=== PATIENT | male | born 1930 | race Caucasian/White ===

== ENCOUNTER → 2016-11-20 | Outpatient (CLI) | payer MEDICARE, BC ==
[~2016-11-20] MED LIST: ALPRAZOLAM; AMIODARONE PO; AMITRYPTYLINE PO; APRESOLINE10 M1 PO; ARICEPT5 MG PO; ASPIRIN PO; ASPIRIN81 M1 PO; ATIVAN PO; B-122500 MCG PO; CARTIA XT PO; CENTRUM SILVER PO; COUMADIN PO; DARVON65 MG; DONEPEZIL HCL10 M1 PO; DONEPEZIL HCL10 MG PO; FINASTERIDE5 M1 PO; FLOMAX0.4 M1 PO; FLOMAX0.4 MG PO; FUROSEMIDE40 MG PO; HYDRALAZINE HC100 MG PO; HYDROCODONE-APA1 T33 PO; HYTRIN; HYTRIN PO; IMDUR; K-DUR20 ME2 PO; KCL PO; LASIX PO; MELATONIN3 MG; MYSOLINE50 MG PO; NABUMETONE; NAMENDA10 MG PO; NAMENDA5 MG PO; NEXIUM PO; NORCO 7.5/325 T1 TAB PO; PACERONE100 MG PO; PLAVIX PO; REMERON15 MG PO; SIMVASTATIN40 MG PO; SYNTHROID PO; SYNTHROID25 MCG PO; TOPROL XL PO; TOPROL XL50 MG PO; VIT E; ZOCOR PO; ZOLOFT; ZOLOFT PO
--- NOTE | ~2016-11-20 | CT4 ---
[facility] A Service of [facility] & [facility] RADIOLOGY TEXT RESULTS PATIENT: UMAIR NICHOLSON [facility] UNIT #: [id number] AGE: [address]: Sima Norwood SEX: M ORDER DR: [id number] [facility] [address] [place], [place] [address] [id number] O MR#: [id number] Acc #: [id number] NAME: UMAIR NICHOLSON : 1930 SEX: M STUDY DATE/TIME: 11/20/2016 8:01 [facility] ROOM: STUDY DESCRIPTION: CT Abd and Pelv Wo Cont Attending Physician: Sima Norwood A.P.R.N. Referring Physician: Ethan Lebron M.D. Ordering Physician: Sima Norwood A.P.R.N. Primary Care Physician: Nico Simental M.D. MEDICAL IMAGING REPORT This report is preliminary unless electronic signature is present EXAM CT abdomen and pelvis without contrast INDICATIONS 86-year-old male with followup aortic aneurysm. TECHNIQUE CT of the abdomen and pelvis performed without contrast. Coronal and sagittal reformatted images obtained. This CT exam was performed with one or more of the following radiation dose reduction techniques: Automatic exposure control, adjustment of mA and/or kV according to patient size, and iterative reconstruction. Comparison with 05/09/2016. FINDINGS Redemonstrated is an infrarenal abdominal aortic aneurysm. It measures about 4.9 x 4.8 cm in greatest dimension. Previously it measured about 4.8 x 4.8 cm. The included lung bases are clear. The liver is unremarkable. Cholecystectomy. Stable dilatation of the common bile duct and mild intrahepatic ductal dilatation. There is a tiny, 6-mm hyperdensity in the distal common bile duct on image 69, which may represent a stone in the common bile duct. Spleen is unremarkable. Stable simple cyst and hyperdense cyst in the left kidney. Right kidney is unremarkable. The adrenal glands are unremarkable. There is some small calcifications in the pancreatic head. The pancreas is otherwise unremarkable. Redemonstrated are enlarged retroperitoneal lymph nodes. Index node to the left of the aorta measures 2.9 x 1.7 cm. Previously this was 2.6 x 1.5 cm. A left iliac chain lymph node is also increased in size measuring 4.1 x 1.9 cm. Previously 3.7 x 1.6 cm. Additional lymph nodes are present, which also appear to have increased in size. There is no free fluid. Fat-containing inguinal hernias bilaterally. Scattered diverticula within the colon. Bone windows demonstrate degenerative changes of the spine. [facility] A Service of [facility] RADIOLOGY TEXT RESULTS PATIENT: UMAIR NICHOLSON [facility] : [facility] UNIT #: [id number] AGE: [address]: Sima Norwood SEX: M ORDER DR: IMPRESSION 1. Redemonstrated is retroperitoneal and pelvic lymphadenopathy. The lymph nodes have increased in size compared with the most recent study. 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 Suggest oncologic consultation. 2. Minimal enlargement of abdominal aortic aneurysm. 3. Redemonstrated is dilatation of the common bile duct and mild dilatation of the intrahepatic bile ducts. The degree of ductal dilatation is stable. There does appear to be a possible tiny stone within the common bile duct measuring about 6 mm. Dictated by... Marlon Trujillo M.D. THIS IS AN ELECTRONICALLY VERIFIED REPORT Marlon Trujillo M.D. at 11/21/2016 11:31 AM ODETTE/darvin TD: 11/20/2016 16:01 JOB #: [id number] MEDICAL IMAGING REPORT Page 1 of 1 COPY
== END | disposition home or self-care (01) ==
LOC: CCAT 07:22
DX: I71.4 Abdominal aortic aneurysm, without rupture (principal); R59.1 Generalized enlarged lymph nodes; K83.8 Other specified diseases of biliary tract
CPT/HCPCS: 74176

== ENCOUNTER → 2017-05-13 | Outpatient (CLI) | payer MEDICARE, BC ==
[2017-05-13 14:52] LABS: ALBUMIN SERUM 3.7 g/dL (3.5-5.0); BILIRUBIN,TOTAL 0.9 mg/dL (0.2-2.0); BUN/CREATININE RATIO 13.07; CALCIUM SERUM 9.1 mg/dL (8.4-10.2); CREATININE SERUM 1.3 mg/dL (0.6-1.4); GLOM FILT RATE Estimated 49.4 mL/min (>60); POTASSIUM 3.7 mmol/L (3.5-5.1); PROTEIN TOTAL SERUM 6.3 g/dL (6.0-8.3)
[2017-05-13 15:00] LABS: THYROID STIMULATING HORMONE 1.13 uIU/ml (0.34-5.60)
[2017-05-13 15:06] LABS: FREE THYROXIN (T4) 1.08 ng/dL (0.58-1.64)
== END | disposition home or self-care (01) ==
LOC: CLAB 12:42
PROVIDERS: Internal Medicine
DX: I12.9 Hypertensive chronic kidney disease with stage 1 through stage 4 chronic kidney disease, or unspecified chronic kidney disease (principal); N18.3 Chronic kidney disease, stage 3 (moderate); E78.5 Hyperlipidemia, unspecified
CPT/HCPCS: 36415; 80053; 80061; 84439; 84443

== ENCOUNTER → 2017-05-13 | Outpatient (CLI) | payer MEDICARE, BC ==
[2017-05-13 16:50] LABS: CREATININE SERUM 1.3 mg/dL (0.6-1.4); GLOM FILT RATE Estimated 49.4 mL/min (>60)
== END | disposition home or self-care (01) ==
LOC: CLAB 12:59
PROVIDERS: Registered Nurse
DX: I71.4 Abdominal aortic aneurysm, without rupture (principal)
CPT/HCPCS: 82565; 84520